=== PATIENT | male | born 1990 | race Caucasian/White ===

== ENCOUNTER 2018-08-25 01:34 | Emergency (ER) | payer SELFPAY ==
[2018-08-25 03:59] LABS: ADD MAN DIFF? NO
[2018-08-25 04:11] LABS: WHITE BLOOD COUNT 17.6 10^3/ul (4.8-10.8)
[2018-08-25 04:11] LABS: BASOPHIL # 0.1 10^3/ul (0.0-0.1); BASOPHILS % 0.3 % (0.0-2.0); EOSINOPHILS # 0.1 10^3/ul (0.0-0.5); EOSINOPHILS % 0.5 % (0.0-7.0); HEMOGLOBIN 15.7 g/dl (14.0-18.0); LYMPHOCYTES # 1.5 10^3/ul (0.8-2.9); LYMPHOCYTES % 8.6 % (15.0-51.0); MEAN CORPUSCULAR HGB CONC 33.4 g/dl (32.0-37.0); MEAN CORPUSCULAR VOLUME 89.9 fl (82.0-101.0); MEAN PLATELET VOLUME 9.7 fl (7.4-10.4); MONOCYTE # 0.8 10^3/ul (0.3-0.9); MONOCYTES % 4.3 % (0.0-11.0); NEUTROPHILS % 85.3 % (39.0-77.0); PLATELET COUNT 277 10^3/UL (140-415); RED BLOOD COUNT 5.23 10^6/ul (4.70-6.10); RED CELL DISTRIBUTION WIDTH 11.6 % (11.5-14.5)
[2018-08-25 04:18] LABS: ALANINE AMINOTRANSFERASE 34 IU/L (13-69); ALBUMIN 4.7 g/dl (3.3-4.9); ALKALINE PHOSPHATASE 71 IU/L (42-121); ANION GAP 11 (5-13); ASPARTATE AMINO TRANSFERASE 35 IU/L (15-46); BILIRUBIN,INDIRECT 0.3 mg/dl (0-1.1); BILIRUBIN,TOTAL 0.3 mg/dl (0.2-1.3); BLOOD UREA NITROGEN 15 mg/dl (7-20); CARBON DIOXIDE 29 mmol/L (21-31); CHLORIDE 104 mmol/L (97-110); CREATININE 0.91 mg/dl (0.61-1.24); Estimated GFR > 60 mL/min (>60); GLUCOSE 105 mg/dl (70-220); SODIUM 144 mmol/L (135-144)
[2018-08-25 04:19] LABS: INR 0.92; PROTIME 12.5 Sec (11.9-14.9)
[2018-08-25 04:20] LABS: PARTIAL THROMBOPLASTIN TIME 25.6 Sec (23.0-35.0)
[2018-08-25] MEDS ORDERED: IOHEXOL 300MG/ML 150 ML BTL (04:45)
[2018-08-25] MEDS ORDERED: SOD CHLORIDE 0.9% 100 ML (04:45)
== END 2018-08-25 08:16 | disposition home or self-care (01) ==
LOC: E/R 01:34
DX: S32.020A Wedge compression fracture of second lumbar vertebra, initial encounter for closed fracture (principal); D72.829 Elevated white blood cell count, unspecified; M79.10 Myalgia, unspecified site; V49.69XA Unspecified car occupant injured in collision with other motor vehicles in traffic accident, initial encounter
CPT/HCPCS: 71260; 73130-LT; 74177; 80048; 80076; 85025; 85610; 85730; 99285-25